=== PATIENT | female | born 1980 | race Caucasian/White ===

== ENCOUNTER 2016-07-24 23:05 | Emergency (ER) | payer OTHER ==
[~2016-07-24] VITALS: Ht 154.9 cm; Wt 111.1 kg
[~2016-07-24 23:05] MED LIST: ACETAMINOPHEN/O1 TAB PO; AUGMENTIN 875875 MG PO; ESCITALOPRAM10 MG PO; FLEXERIL10 MG PO; FLUCONAZOLE150 MG; IBU800 MG PO; LINZESS145 MCG PO; MOMETASONE0.05 MG/Ac NASB; PRILOSEC OTC20 MG PO; TRI-PREVIFEM 351 TAB PO; ZOFRAN ODT4 MG SL
[2016-07-24 23:29] VITALS: BP 112/75
[2016-07-24 23:39] LABS: ABSOLUTE BASOPHIL COUNT 0 /CUMM (0.0-0.2); ABSOLUTE EOSINOPHIL COUNT 0.4 /CUMM (0.0-0.7); ABSOLUTE GRANULOCYTE CT 4.8 /CUMM (1.4-6.5); ABSOLUTE LYMPH COUNT 2.3 /CUMM (1.2-3.4); ABSOLUTE MONOCYTE COUNT 0.7 /CUMM (0.10-0.60); BASOPHIL % 0.3 % (0.0-2.0); EOSINOPHIL % 5.1 % (0-5); GRANULOCYTE % 57.9 % (42.2-75.2); MEAN CORPUSCULAR HGB 27.9 PG (27.0-31.0); MEAN CORPUSCULAR HGB CONC 33.9 G/DL (33.0-37.0); MEAN CORPUSCULAR VOLUME 82.3 FL (81.0-99.0); MEAN PLATELET VOLUME 7.5 FL (7.4-10.4); PLATELET COUNT 309 /CUMM (130-400); RED BLOOD CELL CT 4.98 /CUMM (4.20-5.40); WHITE BLOOD CELL COUNT 8.3 /CUMM (4.8-10.8)
[2016-07-25] MEDS ORDERED: MICROZIDE12.5 M1 PO (00:05)
[2016-07-25] MEDS ORDERED: CYMBALTA60 M1 PO (00:06)
--- NOTE | 2016-07-25 00:51 | ED CARDIAC/CP/PALPITATIONS ---
History of Present Illness General Chief Complaint: Chest Pain Stated Complaint: CHEST PAIN,COOPER,DIZZINESS Source: patient, family, old records, Epic Exam Limitations: no limitations Vital Signs & Intake/Output Vital Signs & Intake/Output Vital Signs Date Time Temp Pulse Resp B/P Pulse O2 O2 Flow FiO2 Ox Delivery Rate 07/25 0040 Room Air 07/24 2329 98.4 77 20 112/75 100 Room Air Allergies Coded Allergies: No Known Allergies (07/02/15) Reconcile Medications Duloxetine HCl (Cymbalta) 60 MG CAPSULE.DR 1 CAP PO DAILY DEPRESSION ( Reported) Escitalopram Oxalate 10 MG TAB 1 TAB PO DAILY MENTAL HEALTH (Reported) Hydrochlorothiazide (Microzide) 12.5 MG CAPSULE 1 TAB PO DAILY HTN (Reported) NORGESTIMATE-ETHINYL ESTRADIOL (Tri-Previfem Tablet) 1 TAB TAB 1 TAB PO DAILY CONTROL (Reported) Triage Note: TRIAGE: PATIENT TO ER FROM HOME REPORTS SEEN THURSDAY AT [facility], [place], [facility] BY [facility] W/ 3 EPISODES OF CP W/ ELEVATED HR AND SOB, DEC BP AND SYNCOPE (ALL OCCURED THURSDAY). 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 PATIENT REPORTS TONIGHT HAVING CRUSHING SHARP CP W/ "CLOUDY HEAD AND DIZZINESS/ LIGHTHEADEDNESS", ALSO REPORTS HAS BEEN TAKING MEDICATION FOR ENTIRE BODY SWELLING (HANDS, LEGS, BILATERAL ARMS). DENIES ANY SYNCOPAL EPISODES TONIGHT. REPORTING ONLY SLIGHT INTERMITTENT SOB, NO ACUTE DISTRESS NOTED. Triage Nurses Notes Reviewed? yes Onset: Just prior to arrival Duration: minute(s):, constant, continues in ED, getting worse Timing: recent history Quality/Severity: severe, aching, pressure Location: central Radiation: no radiation Activities at Onset: none Prior Chest Pain/Card Workup: non-cardiac Nitro Today/Relief: no nitro taken today Aspirin Today: no aspirin today Associated Symptoms: diaphoresis, dizziness, headache, weakness LMP (ages 10-50): unknown : No Patient currently breastfeeds: No HPI: 1 week prior to admission patient reports being in child's cardiology office developed low blood pressure arrhythmia and syncope. She was seen at [facility] with normal EKG normal labs referred to cardiology. Prior to admission she developed heavy chest pain nonradiating constant associated with dizziness diaphoresis headache confusion. She denies fever chills nausea vomiting diarrhea abdominal pain shortness of breath dysuria rash bleeding. Past History Travel History Traveled to [place] past 21 day No Medical History Any Pertinent Medical History? 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 No Review of Systems Review of Systems Constitutional: Reports: see HPI, diaphoresis. EENTM: Reports: no symptoms. Respiratory: Reports: no symptoms. Cardiovascular: Reports: see HPI, chest pain. GI: Reports: no symptoms. Genitourinary: Reports: no symptoms. Musculoskeletal: Reports: no symptoms. Skin: Reports: no symptoms. Neurological/Psychological: Reports: see HPI, anxiety, confusion, headache. Hematologic/Endocrine: Reports: no symptoms. Immunologic/Allergic: Reports: no symptoms. All Other Systems: Reviewed and Negative Physical Exam Physical Exam General Appearance: well developed/nourished, alert, awake, anxious, moderate distress, obese Head: atraumatic, normal appearance Eyes: Bilateral: normal appearance, PERRL, EOMI. Ears, Nose, Throat: hearing grossly normal Neck: normal inspection, supple, full range of motion Respiratory: no respiratory distress Cardiovascular: regular rate/rhythm, normal peripheral pulses, norml femoral pulses equa Peripheral Pulses: 4+ carotid (R), 4+ carotid (L) Gastrointestinal: non-tender Back: normal inspection, normal range of motion Extremities: normal inspection, normal capillary refill, normal range of motion, no edema Neurologic/Psych: no motor/sensory deficits, awake, alert, oriented x 3 Skin: intact Lymphatic: no anterior cervical bill Core Measures ACS in differential dx? Yes ASA ordered for poss ACS? left AMA Severe Sepsis Present: No Septic Shock Present: No Progress Differential Diagnosis: AMI, atrial fibrillation Plan of Care: Orders Procedure Date/time Status TROPONIN LEVEL 07/24 2314 Complete COMPREHENSIVE METABOLIC PANEL 07/24 2314 Complete CBC WITHOUT DIFFERENTIAL 07/24 2314 Complete EKG 07/24 2306 Active Laboratory Tests 07/24/16 2326: Anion Gap 9, Estimated GFR > 60, BUN/Creatinine Ratio 18.8, Glucose 97, Calcium 9.5, Total Bilirubin 0.5, AST 23, ALT 34, Alkaline Phosphatase 83, Troponin I < 0.01, Total Protein 7.6, Albumin 4.4, Globulin 3.2, Albumin/Globulin Ratio 1.4, CBC w Diff NO MAN DIFF REQ, RBC 4.98, MCV 82.3, MCH 27.9, RDW 14.0, MPV 7.5, Gran % 57.9, Lymphocytes % 27.8, Monocytes % 8.9, Eosinophils % 5.1 H, Basophils % 0.3, Absolute Granulocytes 4.8, Absolute Lymphocytes 2.3, Absolute Monocytes 0.7 H, Absolute Eosinophils 0.4, Absolute Basophils 0, PUBS MCHC 33.9 Initial ED EKG: normal axis, normal intervals, normal p-waves, normal QRS complex, normal sinus rhythm, no ST T wave changes Comments: Patient anxious, accusatory, paranoid confronting nursing with derogatory tone. Attempted to leave AMA then decided to stay for monitoring. Decided she did not want to stay and left without discharge instructions threatening staff. Departure Departure Disposition: LEFT AGAINST MEDICAL ADVICE Condition: Stable Clinical Impression Primary Impression: Chest pain syndrome Referrals: ANGEL LIN (PCP/Family) MANSOOR PINZON MD Departure Forms: Customer Survey General Discharge Information Critical Care Note Critical Care Note Critical Care Time: non-applicable
== END 2016-07-25 00:49 | disposition left against medical advice (07) ==
LOC: ERH 23:05
PROVIDERS: Emergency Medicine
DX: R07.89 Other chest pain (principal)
CPT/HCPCS: 93005; 93010; 96374; 96375